=== PATIENT | male | born 1980 | race Caucasian/White ===

== ENCOUNTER 2022-12-03 07:52 | Day surgery (SDC) | payer OTHER ==
[~2022-12-03 07:52] MED LIST: Lactated Ringers 1,000 ML IV SCH; Midazolam 1 MG/ML 2 ML SDV ONE; Propofol 200 MG/20 ML SDV ONE; Sodium Chloride 0.9% 10 ML Syringe FLUSH PRN; fentaNYL 100 MCG/2 ML SDV ONE
[2022-12-03] MEDS ORDERED: Ondansetron 4 MG/2 ML SDV ONE (08:58)
[2022-12-03] MEDS ORDERED: Dexamethasone 10 MG/ML SDV ONE (08:58)
[2022-12-03] MEDS ORDERED: Lidocaine 1% 5 ML VIAL INFILT ONE (09:16)
[2022-12-03] MEDS ORDERED: Bupivacaine 0.5%/EPINEPHrine 1:200,000 30 ML SDV INFILT ONE (09:16)
[2022-12-03] MEDS ORDERED: ceFAZolin 1 GM Vial ONE (09:35)
[2022-12-03 11:27] VITALS: BP 115/68; PULSE 49
== END 2022-12-03 13:05 | disposition home or self-care (01) ==
LOC: LL.SDS 07:52 → MERGE 08:30 → LL.SDS 13:05
PROVIDERS: ATTEND Surgery
DX: K40.90 Unilateral inguinal hernia, without obstruction or gangrene, not specified as recurrent (principal); D17.6 Benign lipomatous neoplasm of spermatic cord; Z79.899 Other long term (current) drug therapy
CPT/HCPCS: 00830; C1781; J0690; J1100; J2250; J2405; J2704; J3010; J3490; J7120